=== PATIENT | female | born 1970 | race Caucasian/White ===

== ENCOUNTER 2018-11-27 09:33 | Outpatient (CLI) | payer BC ==
--- NOTE | 2018-11-27 10:05 | ULT ---
ULTRASOUND ABDOMEN COMPLETE: DATE: 11/27/2018 HISTORY: Generalized abdominal pain in 48-year-old female. FINDINGS: Gallbladder: Normal wall thickness. No evidence of pericholecystic fluid, gallstones, or sludge. Liver: Diffusely increased echogenicity, consistent with fatty liver. Common duct caliber: 5 mm. Bilateral kidneys: No hydronephrosis. There is a 3 x 2.5 cm region of low echogenicity at the midpole of the left kidney. It is uncertain whether this represents a cyst, dromedary hump, or solid neoplasm. Pancreas: Nonspecific sonographic appearance. Abdominal aorta: No aneurysm Inferior vena cava: Unremarkable where visualized. Spleen: No splenomegaly IMPRESSION: 1) Hepatic steatosis. 2) questionable right renal mass. Recommend CT of abdomen (preferably renal mass protocol multiphase CT abdomen with and without contrast, unless there is contraindication to iodinated contrast, in which case beginning with a noncontrast CT should be initiated).
== END 2018-11-27 09:34 | disposition home or self-care (01) ==
LOC: SCSULT 09:33
PROVIDERS: ATTEND Internal Medicine Gastroenterology
DX: R10.9 Unspecified abdominal pain (principal); K76.0 Fatty (change of) liver, not elsewhere classified
CPT/HCPCS: 76700

== ENCOUNTER 2018-12-24 08:15 | Outpatient (CLI) | payer BC ==
[2018-12-24] MEDS ORDERED: Iopamidol 370 76% 100 ML VIAL ONE (09:00)
--- NOTE | 2018-12-24 10:53 | CT ---
CT ABDOMEN AND PELVIS WITH AND WITHOUT IV CONTRAST: HISTORY: Abnormal ultrasound, probable left renal mass. FINDINGS: The lung bases are unremarkable. No calcified gallstones are seen. The spleen, pancreas, and adrena l glands are normal. There is an 8 x 6.5 cm mass in the posterior segment of the right lobe of the liver with peripheral n odular enhancement. There is no complete filling of this mass seen on the 4-minute delayed image. A punctate calculus is seen in the right kidney. No calculi are seen in the left kidney, either uret er, or the urinary bladder. No hydroureteral nephrosis is noted on either side. Postcontrast images demonstrate no evidence of enhancing renal mass. A punctate calculus is also seen in the left kidne y. There is normal contrast excretion into the ureters and urinary bladder. No free air, free fluid, or periarortic lymphadenopathy is seen in the abdomen or pelvis. There is a 7 mm lymph node in the right lower quadrant posterior to the cecum. The small bowel loops are not a bnormally dilated. A normal-appearing appendix is present. Uterus and ovaries are present. There i s no evidence of aneurysmal dilatation of the abdominal aorta. Mild degenerative changes are noted i n the spine. IMPRESSION: 1. Large mass in the right lobe of the liver. The possibility of hemangioma should be considered. A Technetium 99m labeled RBC scan is recommended. 2. Punctate nonobstructing renal calculi without evidence of renal mass. POS: OFF
== END 2018-12-24 08:16 | disposition home or self-care (01) ==
LOC: SCSCT 08:15
PROVIDERS: ATTEND Internal Medicine Gastroenterology
DX: N28.89 Other specified disorders of kidney and ureter (principal); R16.0 Hepatomegaly, not elsewhere classified; N20.0 Calculus of kidney
CPT/HCPCS: 74178; Q9967

== ENCOUNTER 2019-04-13 18:59 | Emergency (ER) | payer BC ==
[2019-04-13] MEDS ORDERED: HYDROcodone/Acetaminophen 5/325 mg Tablet ONE (20:14)
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
== END 2019-04-13 21:05 | disposition home or self-care (01) ==
LOC: SCSER 18:59
DX: S16.1XXA Strain of muscle, fascia and tendon at neck level, initial encounter (principal); S20.212A Contusion of left front wall of thorax, initial encounter; S80.12XA Contusion of left lower leg, initial encounter; S80.11XA Contusion of right lower leg, initial encounter; F41.9 Anxiety disorder, unspecified; Z79.899 Other long term (current) drug therapy; V43.52XA Car driver injured in collision with other type car in traffic accident, initial encounter
CPT/HCPCS: 71046